=== PATIENT | male | born 1945 | race Caucasian/White ===

== ENCOUNTER → 2017-03-28 | Outpatient (CLI) | payer OTHER | END | disposition home or self-care (01) | LOC: PETCFH 08:59 | PROVIDERS: ATTEND Urology | DX: R16.2 Hepatomegaly with splenomegaly, not elsewhere classified (principal); K86.2 Cyst of pancreas; I11.9 Hypertensive heart disease without heart failure; E78.2 Mixed hyperlipidemia; E11.40 Type 2 diabetes mellitus with diabetic neuropathy, unspecified; F43.10 Post-traumatic stress disorder, unspecified | CPT/HCPCS: 78816; A9552 ==